=== PATIENT | female | born 1940 ===

== ENCOUNTER 2018-09-05 08:57 | Outpatient (CLI) | payer OTHER ==
[~2018-09-05 08:57] MED LIST: ASA81 MG PO; LIPO-FLAVONOID1 EACH PO; NORVASC5 MG PO; TRIAMTERENE-HCT1 TA1 PO
== END 2018-09-05 14:23 | disposition home or self-care (01) ==
LOC: SONOGRAMA 08:57
DX: M75.121 Complete rotator cuff tear or rupture of right shoulder, not specified as traumatic (principal)